=== PATIENT | male | born 1960 | race Caucasian/White ===

== ENCOUNTER 2017-06-26 20:43 | Inpatient (IN) | payer OTHER ==
[~2017-06-26] VITALS: Ht 190.5 cm; Wt 109.8 kg
[~2017-06-26 20:43] MED LIST: ASPIR 8181 MG PO; ATORVASTATIN CA20 MG PO; METOPROLOL TART50 MG PO; MULTAQ 400MG T400 MG PO; NORCO 5-325 TA1 EACH PO; PEPCID20 MG PO
[2017-06-26] MEDS ORDERED: METOPROLOL TARTRATE INJ 1 MG/ML VIAL IV ONE ×2 (21:30→23:00)
[2017-06-26 21:44] LABS: BASOPHILS % 0.4 % (0.0-1.0); EOSINOPHILS # (AUTO) 0.3 (0.0-0.4); EOSINOPHILS % 3.1 % (0.0-6.0); HEMATOCRIT 44.5 % (38.2-49.6); HEMOGLOBIN 15.8 g/dL (14.0-18.0); LYMPHOCYTES # (AUTO) 3.2 (1.0-3.2); LYMPHOCYTES % 29.5 % (18.0-39.1); MEAN CORPUSCULAR HEMOGLOBIN 30.8 pg (28-32); MEAN CORPUSCULAR HGB CONC 35.5 g/dL (31-35); MEAN CORPUSCULAR VOLUME 86.7 fL (81-99); MONOCYTES % 9.5 % (4.4-11.3); NEUTROPHILS # (AUTO) 6.1 (2.1-6.9); NEUTROPHILS % 56.8 % (38.7-80.0); PLATELET COUNT 239 x10e3/uL (140-360); RED BLOOD COUNT 5.13 x10e6/uL (4.3-5.7); RED CELL DISTRIBUTION WIDTH 12.4 % (11.7-14.4)
[2017-06-26 21:56] LABS: ALANINE AMINOTRANSFERASE 60 IU/L (0-55); ALBUMIN 4.2 g/dL (3.5-5.0); ALBUMIN/GLOBULIN RATIO 1.6 (0.8-2.0); ALKALINE PHOSPHATASE 46 IU/L (40-150); ANION GAP 11.9 mmol/L (8-16); BLOOD UREA NITROGEN 26 mg/dL (7-26); BUN/CREATININE RATIO 21 (6-25); CALCIUM 9.4 mg/dL (8.4-10.2); CARBON DIOXIDE 25 mmol/L (22-29); CHLORIDE 103 mmol/L (98-107); CREATINE KINASE 168 IU/L (30-200); CREATININE, SERUM 1.23 mg/dL (0.72-1.25); EST GLOMERULAR FILTRATION RATE > 60 ML/MIN (60-); GLUCOSE 99 mg/dL (74-118); POTASSIUM 3.9 mmol/L (3.5-5.1); SODIUM 136 mmol/L (136-145)
--- NOTE | 2017-06-26 22:20 | Diagnostic Imaging Report ---
Examination: CT BRAIN WITHOUT CONTRAST History:Left upper extremity burning and tingling. Elevated blood pressure. Comparison studies:None Technique: Axial images were obtained from the skull base to the vertex. Coronal and sagittal images reconstructed from the axial data. Intravenous contrast: None Findings: Scalp: No abnormalities. Bones: No fractures, blastic or lytic lesions. Brain sulci: Appropriate for age. Ventricles: Normal in size and configuration. No hydrocephalus. Extra-axial space: No abnormalities. Parenchyma: No abnormal densities. No masses, hemorrhage, or acute or chronic cortical based vascular insults.. Sellar/suprasellar region: No abnormalities. Craniocervical junction: Patent foramen magnum. No Chiari one malformation. Incidental findings: Atherosclerotic calcification of the supraclinoid internal carotid arteries. Impression: No intracranial abnormalities. Signed by: Dr. Elizabeth Loco M.D. on 06/26/2017 10:16 PM
--- NOTE | 2017-06-26 22:26 | Diagnostic Imaging Report ---
EXAM: CHEST 2 VIEWS, PA and lateral INDICATION: Elevated blood pressure COMPARISON: AP view of the chest shortness of breath FINDINGS: LINES/TUBES: None LUNGS: No consolidations or edema. PLEURA: No effusions or pneumothorax. HEART AND MEDIASTINUM: Normal size and contour. BONES AND SOFT TISSUES: No acute findings. IMPRESSION: No acute thoracic abnormality. Signed by: Dr. Kelly Goodson M.D. on 06/26/2017 10:22 PM
[2017-06-26] MEDS ORDERED: SODIUM CHLORIDE 0.9% 1000ML 1,000 ML IV ONE (23:00)
[2017-06-26] MEDS ORDERED: SODIUM CHLORIDE 0.9% 1000ML 1,000 ML ONE (23:06)
[2017-06-26] MEDS ORDERED: METOPROLOL TARTRATE INJ 1 MG/ML VIAL ONE (23:06)
[2017-06-27] MEDS ORDERED: ENOXAPARIN SODIUM INJ 100 MG/ML SYR SC STA (00:01)
[2017-06-27] MEDS ORDERED: ONDANSETRON HCL INJ 2 MG/ML VIAL IV PRN (00:30)
[2017-06-27] MEDS: SODIUM CHLORIDE 0.9% 1000ML 1,000 ML IV SCH ×4 (00:37→16:05)
--- OUTSIDE RECORDS SUMMARY | 2017-06-27 01:03 | XMS REPORT ---
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 Allergies, Adverse Reactions, Alerts This patient has no known allergies or adverse reactions. Medications This patient has no known medications. Results Test Description Test Time Test Comments Text Results Atomic Results Result Comments CT BRAIN WO [place] [id number] [place] [id number] Patient Name: SITA COFFEY MR #: [id number] : 1960 Age/Sex: 57/M Req #: [id number] Adm Physician: Ordered by: SITA LEIVA MD Report # : [id number] Location: ER Room/Bed: Procedure: 0320 -[id number] CT/CT BRAIN WO Exam Date: 06/26/17 Exam Time: 2144 REPORT STATUS: Signed Examination: CT BRAIN WITHOUT CONTRAST History:Left upper extremity burning and tingling. Elevated blood pressure. Comparison studies:None Technique: Axial images were obtained from the skull base to the vertex. Coronal and sagittal images reconstructed from the axial data. Intravenous contrast: None Findings: Scalp: No abnormalities. Bones: No fractures, blastic or lytic lesions. Brain sulci : Appropriate for age. Ventricles: Normal in size and configuration. No hydrocephalus. Extra-axial space: No abnormalities. Parenchyma: No abnormal densities. No masses, hemorrhage, or acute or chronic cortical based vascular insults.. Sellar/suprasellar region: No abnormalities. Craniocervical junction: Patent foramen magnum. No Chiari one malformation. Incidental findings: Atherosclerotic calcification of the supraclinoid internal carotid arteries. Impression: No intracranial abnormalities. Signed by: Dr. Elizabeth Loco M.D. on 06/26/2017 10:16 PM Dictated By: ELIZABETH TOMPKINS MD 15 Transcribed By: KAMLESH on 2215 COPY TO: SITA LEIVA MD CHEST 2 VIEWS [place] [address] Patient Name: SITA COFFEY MR #: [id number] : 1960 Age/Sex: 57/M Req #: [id number] Adm Physician: Ordered by: SITA LEIVA MD Report # : [id number] Location: ER Room/Bed: Procedure: [id number] DX/CHEST 2 VIEWS Exam Date: 06/26/17 Exam Time : 2201 REPORT STATUS: Signed EXAM: CHEST 2 VIEWS, PA and lateral INDICATION: Elevated blood pressure COMPARISON: AP view of the chest shortness of breath FINDINGS: LINES/TUBES: None LUNGS: No consolidations or edema. PLEURA: No effusions or pneumothorax. HEART AND MEDIASTINUM: Normal size and contour. BONES AND SOFT TISSUES: No acute findings. IMPRESSION: No acute thoracic abnormality. Signed by: Dr. Hailey Goodson M.D. on 06/26/2017 10:22 PM Dictated By: HAILEY GOODSON MD 21 Transcribed By: KAMLESH on 06/26/17 9448 COPY TO: SITA LEIVA MD
[2017-06-27 05:52] LABS: CREATINE KINASE MB 11.6 ng/mL (0-5.0)
[2017-06-27] MEDS ORDERED: METOPROLOL TARTRATE INJ 1 MG/ML VIAL IV SCH (06:00)
[2017-06-27] MEDS: METOPROLOL TARTRATE INJ 1 MG/ML VIAL IV SCH ×3 (06:14→21:43)
[2017-06-27] MEDS ORDERED: METOPROLOL TARTRATE INJ 1 MG/ML VIAL ONE (06:16)
[2017-06-27] MEDS ORDERED: LIPITOR20 MG (07:32)
[2017-06-27] MEDS ORDERED: DRONEDARONE 400 MG TAB PO SCH (08:00)
[2017-06-27] MEDS: METOPROLOL TARTRATE 50 MG TAB PO SCH (08:35)
[2017-06-27] MEDS: ENOXAPARIN SODIUM INJ 100 MG/ML SYR SC SCH ×2 (08:36→21:42)
[2017-06-27] MEDS ORDERED: SODIUM CHLORIDE FLUSH 10 ML SYR INJ PRN (10:45)
[2017-06-27] MEDS ORDERED: ALPRAZOLAM 0.5 MG TAB PO PRN (10:45)
--- NOTE | 2017-06-27 11:32 | History and Physical ---
Mr. Saab is a pleasant, 57-year-old man known to me since 2015, who presented to the emergency room today with a complaint of palpitations. HISTORY OF PRESENT ILLNESS: The patient reports he had been feeling well in the last 2 days, but that on the evening of the , while going about his routine activities, he developed rapid palpitations. He felt he also had some tingling in his left arm. PAST MEDICAL HISTORY: Significant for previous episodes of atrial fibrillation in December 2015. He has taken Multaq since that time. He stopped taking Xarelto about a year ago. He had cardiac cath in 2010 that showed moderate two-vessel coronary disease. He did have a stress test in March 2017 that was negative. MEDICATIONS: Current medications at home include: 1. Multaq 400 mg twice daily. 2. Metoprolol 25 mg daily. 3. Atorvastatin 10 mg daily. 4. He reports he takes a nonsteroidal anti-inflammatory sometimes. FAMILY HISTORY: Brothers have coronary disease. PERSONAL AND SOCIAL HISTORY: He does not smoke. PHYSICAL EXAMINATION GENERAL: Exam at this time shows a pleasant, alert man, about 6 feet 2 inches tall, weighing 232 pounds. VITAL SIGNS: Blood pressure is 120/70. Pulse is 110 and irregular. HEENT: Unremarkable. NECK: No jugular venous distention. No bruits. THORAX: Heart sounds S1 and S2 are equal but irregular and irregular. There is no distinct murmur. ABDOMEN: Protuberant. EXTREMITIES: No cyanosis, clubbing or edema. REVIEW OF SYSTEMS: Gastrointestinal: He reports he has had some right lower quadrant discomfort and reports he has actually seen Dr. Bernal in the last couple of weeks and had a CAT scan that was unremarkable. LABS: Troponins are normal times 2. BUN 26, creatinine 1.23, glucose 99. White count 10.6, hemoglobin 15.8. ASSESSMENT 1. Recurrent atrial fibrillation. 2. Hyperlipidemia. 3. Known coronary disease. PLAN: Will use Lovenox and continue his metoprolol and Multaq. Will plan cardiac catheterization for tomorrow and then consider whether he may need ablation or other treatment for his atrial fibrillation. Job#: [id number]
[2017-06-27 14:04] LABS: CREATINE KINASE 100 IU/L (30-200)
[2017-06-27 16:29] VITALS: BP 123/99
[2017-06-27 16:58] VITALS: BP 117/74
[2017-06-27 20:00] VITALS: BP 133/93
[2017-06-27] MEDS: AMIODARONE HCL 200 MG TAB PO SCH (21:43)
[2017-06-27 22:19] LABS: CREATINE KINASE MB 8.8 ng/mL (0-5.0)
[2017-06-28] VITALS: BP_SYST 118; BP_SYST 133; BP_DIAS 85; BP_DIAS 93
[2017-06-28] MEDS: SODIUM CHLORIDE 0.9% 1000ML 1,000 ML IV SCH ×3 (02:35→18:10)
[2017-06-28 04:00] VITALS: BP 152/58
[2017-06-28] MEDS: AMIODARONE HCL 200 MG TAB PO SCH ×3 (05:46→21:30)
[2017-06-28] MEDS: METOPROLOL TARTRATE INJ 1 MG/ML VIAL IV SCH ×3 (06:00→21:30)
[2017-06-28 07:16] LABS: BASOPHILS % 0.5 % (0.0-1.0); EOSINOPHILS # (AUTO) 0.3 (0.0-0.4); EOSINOPHILS % 3.3 % (0.0-6.0); HEMOGLOBIN 14.3 g/dL (14.0-18.0); LYMPHOCYTES # (AUTO) 2.1 (1.0-3.2); LYMPHOCYTES % 23.9 % (18.0-39.1); MEAN CORPUSCULAR HEMOGLOBIN 30.5 pg (28-32); MEAN CORPUSCULAR VOLUME 89.6 fL (81-99); MONOCYTES % 11.2 % (4.4-11.3); NEUTROPHILS # (AUTO) 5.3 (2.1-6.9); NEUTROPHILS % 60.8 % (38.7-80.0); PLATELET COUNT 204 x10e3/uL (140-360); RED BLOOD COUNT 4.69 x10e6/uL (4.3-5.7); RED CELL DISTRIBUTION WIDTH 12.8 % (11.7-14.4)
[2017-06-28 07:30] LABS: INR 1.01; PROTHROMBIN TIME 12.5 seconds (11.9-14.5)
[2017-06-28 07:31] LABS: PARTIAL THROMBOPLASTIN TIME 30.8 seconds (23.8-35.5)
[2017-06-28 07:48] LABS: ALANINE AMINOTRANSFERASE 46 IU/L (0-55); ALBUMIN 3.8 g/dL (3.5-5.0); ALBUMIN/GLOBULIN RATIO 1.6 (0.8-2.0); ALKALINE PHOSPHATASE 40 IU/L (40-150); ANION GAP 12.5 mmol/L (8-16); BLOOD UREA NITROGEN 19 mg/dL (7-26); BUN/CREATININE RATIO 21 (6-25); CARBON DIOXIDE 25 mmol/L (22-29); CHLORIDE 109 mmol/L (98-107); CREATININE, SERUM 0.91 mg/dL (0.72-1.25); EST GLOMERULAR FILTRATION RATE > 60 ML/MIN (60-); GLUCOSE 104 mg/dL (74-118); POTASSIUM 4.5 mmol/L (3.5-5.1); SODIUM 142 mmol/L (136-145)
[2017-06-28 08:05] LABS: CHOL/HDL RATIO 5.2 (3.9-4.7)
[2017-06-28 08:27] LABS: THYROID STIMULATING HORMONE 1.814 uIU/mL (0.350-4.940)
[2017-06-28] MEDS: METOPROLOL TARTRATE 50 MG TAB PO SCH (08:55)
[2017-06-28] MEDS ORDERED: ATORVASTATIN 10 MG TAB PO SCH (09:00)
[2017-06-28] MEDS ORDERED: LIDOCAINE HCL 2% LOCAL 20 ML VIAL ONE ×2 (09:40→10:17)
[2017-06-28] MEDS ORDERED: IOPAMIDOL 370 MG/ML 200 ML INFUS..BTL INJ ONE (09:40)
[2017-06-28] MEDS ORDERED: HEPARIN SOD/SOD CHLORIDE 2,000 ML ONE (09:40)
[2017-06-28] MEDS ORDERED: FENTANYL CITRATE/PF 100MCG/2 ML INJ ONE (09:55)
[2017-06-28] MEDS ORDERED: SODIUM CHLORIDE 0.9% 1000ML 1,000 ML ONE (09:55)
[2017-06-28] MEDS ORDERED: MIDAZOLAM HCL 2 MG/2 ML VIAL ONE (09:55)
[2017-06-28 10:04] VITALS: BP 146/71
[2017-06-28] MEDS ORDERED: METOPROLOL TARTRATE INJ 1 MG/ML VIAL ONE (10:05)
[2017-06-28] MEDS ORDERED: HYDROCODONE/APAP 5MG-325MG TAB PO PRN (10:45)
[2017-06-28] MEDS ORDERED: ACETAMINOPHEN 325 MG TAB PO PRN (10:45)
[2017-06-28 13:26] VITALS: BP 129/87
[2017-06-28 17:04] VITALS: BP 114/74
[2017-06-28] MEDS: RIVAROXABAN 20 MG TABLET PO SCH (17:33)
[2017-06-28 20:00] VITALS: BP 124/85
[2017-06-28] MEDS ORDERED: ZOLPIDEM TARTRATE 5 MG TAB PO PRN (21:00)
[2017-06-29] VITALS (7 sets, daily range): BP systolic 117–145; BP diastolic 77–97
[2017-06-29] MEDS: SODIUM CHLORIDE 0.9% 1000ML 1,000 ML IV SCH ×2 (02:35→10:35)
[2017-06-29] MEDS: AMIODARONE HCL 200 MG TAB PO SCH ×2 (06:22→14:16)
[2017-06-29] MEDS: METOPROLOL TARTRATE INJ 1 MG/ML VIAL IV SCH ×2 (06:22→14:16)
[2017-06-29] MEDS: METOPROLOL TARTRATE 50 MG TAB PO SCH (09:13)
[2017-06-29] MEDS ORDERED: BENZOCAINE 20% SPR 60 ML CAN ONE (11:08)
[2017-06-29] MEDS ORDERED: PROPOFOL IV EMULSION 10 MG/ML 20 ML VIAL ONE (14:32)
[2017-06-29] MEDS ORDERED: LIDOCAINE HCL 2% LOCAL INJ 5 ML SDV VIAL INJ ONE (14:32)
[2017-06-29] MEDS ORDERED: FENTANYL CITRATE/PF 100MCG/2 ML INJ ONE (15:48)
[2017-06-29] MEDS ORDERED: XARELTO10 MG PO (16:52)
[2017-06-29] MEDS ORDERED: AMIODARONE HCL200 MG PO (16:52)
[2017-06-29] MEDS: RIVAROXABAN 20 MG TABLET PO SCH (16:53)
--- NOTE | 2017-06-29 17:24 | Discharge Summary ---
HISTORY OF PRESENT ILLNESS: Mr. Saab is a 57-year-old man well known to me for several years with problems with intermittent atrial fibrillation. HOSPITAL COURSE: Patient presented to the emergency room in rapid atrial fibrillation and was given IV metoprolol. His Multaq was stopped and he was begun loaded with on amiodarone orally. On the he was taken to cardiac research laboratory specialist where a left heart catheterization showed insignificant coronary disease and poor left ventricular function. EF 25% to 30%. On the morning of the , he was taken to the endoscopy suite where transesophageal echocardiogram was performed, which showed mild mitral regurgitation. No evidence of atrial thrombus and he was cardioverted with 120 joules successfully. He will take his last loading dose of amiodarone 400 mg at home this evening and begin daily 400 mg each morning. He will add Xarelto 20 mg daily and discontinue his Multaq. He will continue his home metoprolol and atorvastatin. He will follow up Dr. Khan next week to consider ablation of atrial fibrillation. DISCHARGE DIAGNOSES: 1. Recurrent atrial fibrillation. 2. Hypertension. 3. Reduced left ventricular function. 4. Successful cardioversion to sinus rhythm. DENISE ARIZA MD Job#: [id number]
[2017-06-29] MEDS ORDERED: ATORVASTATIN 10 MG TAB PO SCH (21:00)
--- NOTE | 2017-07-02 14:55 | Operative Report ---
DATE OF PROCEDURE: June 27, 2017 PROCEDURE: Left heart catheterization. The patient was brought to the catheterization laboratory technician in a fasting and partially sedated state with recent onset of atrial fibrillation. The right groin was prepped, scrubbed and 2% Xylocaine. The patient was given a total of 2 mg of Versed. A 4-Cambodian sheath was placed in the right common femoral artery and left heart catheterization performed with a 4-Cambodian pigtail and a 4-Cambodian right Rocio, and a 5-Cambodian left Rocio catheters. Inspection of the film shows that the left ventricular function is abnormal with estimated ejection fraction of 25%. No distinct regional wall motion abnormalities. The right coronary artery appears to be large and unremarkable without any significant plaquing. The left main again without any significant plaquing. The proximal LAD has about a 15% stenosis more distally and unremarkable. The small ramus is unremarkable. The first obtuse marginal has about a 15% stenosis in its proximal portion, but unremarkable more distally. The distal circumflex is very small. The catheters were removed, and pressure held. He was returned to his room in stable condition. FINAL IMPRESSION 1. Abnormal left ventricular function with global hypokinesis. Estimated ejection fraction 25%. 2. Minor coronary disease with 15% stenoses of the left anterior descending and obtuse marginal vessels. 3. No mitral regurgitation. Job#: [id number] USHA
--- NOTE | 2017-07-03 11:59 | Consultation ---
DATE OF CONSULTATION: REFERRING PHYSICIAN: Dr. Curtis REASON FOR CONSULT: Atrial fibrillation, consider ablation. HISTORY OF PRESENT ILLNESS: This is a 57-year-old gentleman with a history of atrial fibrillation. He has been paroxysmal. He has had several episodes over the last 2 years. He feels palpitations. The initial episode he underwent cardioversion and was started on Multaq. Despite taking Multaq, he sometimes feels palpitations. His heart is racing. He has been to the ER a couple of times with same symptoms and found to be in atrial fibrillation despite taking Multaq. He presented this time because the episode did not subside and has lasted for a few hours, having some dizziness and chest pain, found to be in atrial fibrillation with rapid ventricular response. Currently undergoing workup by Dr. Curtis. He feels a little better now after rate is better controlled, initially was at 140 beats per minute, now it is at about 100 beats per minute. No history of syncope. REVIEW OF SYSTEMS CONSTITUTIONAL: Negative. CARDIOVASCULAR: As per HPI. RESPIRATORY: Negative. GASTROINTESTINAL: Negative. GENITOURINARY: Negative. MUSCULOSKELETAL: Negative. EYES: Negative. ENT: Negative. ALLERGY AND IMMUNOLOGY: Negative. PSYCHIATRY: Negative. PAST MEDICAL HISTORY: Atrial fibrillation. SURGICAL HISTORY: Negative. SOCIAL HISTORY: No smoking, alcohol, or illicit drugs. FAMILY HISTORY: Nor premature coronary artery disease. PHYSICAL EXAMINATION VITAL SIGNS: Blood pressure 120/60, pulse 100, respirations 20, and O2 sats 98%. GENERAL: No acute distress. HEENT: Moist mucous membranes. CARDIOVASCULAR: Irregular. RESPIRATORY: Clear. ABDOMEN: Soft and nontender. MUSCULOSKELETAL: 2+ distal pulses. NEUROLOGIC: No focal deficit. SKIN: No lesions. EKG: Atrial fibrillation, rapid ventricular response. IMPRESSION: Atrial fibrillation, paroxysmal, highly symptomatic, refractory to medical therapy with Multaq. RECOMMENDATIONS: I had a long discussion with the patient. He has a strong indication for ablation. Explained the different options including continuing antiarrhythmic therapy. Patient is interested in the procedure. The ablation was discussed in detail with benefits and risks. Patient voices understanding and wishes to proceed. We will go ahead and schedule an ablation of atrial fibrillation at [facility]. We will need a cardiac CT at [facility]. No need for ZHENG for the ablation. I agree with continuing anticoagulation with Eliquis or Xarelto. Dr. Curtis, recommend to start amiodarone 400 mg once a day. Discussed with Dr. Curtis. He is to arrange for ZHENG cardioversion before discharge. Also, patient is undergoing heart catheterization during this admission. Patient will be discharged from this hospital and we will schedule the ablation as an outpatient. Thank you for letting us participate in Mr. Saab's healthcare. Job#: [id number] CF
--- NOTE | 2017-07-12 22:19 | Consultation ---
DATE OF CONSULTATION: June 27, 2017 ADDENDUM TO CONSULTATION The date of consultation is June 27, 2017. Job#: [id number]
== END 2017-06-29 17:15 | disposition home or self-care (01) | DRG 287 ==
LOC: ER 20:43 → ERHOLD 06-27 00:59 → MED/SURG 06-27 15:30
PROVIDERS: ADMIT Internal Medicine Cardiovascular Disease; ATTEND Internal Medicine Cardiovascular Disease
PROC: 4A023N7 Measurement of Cardiac Sampling and Pressure, Left Heart, Percutaneous Approach (ICD-10-PCS; principal; 2017-06-27)
PROC: B2151ZZ Fluoroscopy of Left Heart using Low Osmolar Contrast (ICD-10-PCS; 2017-06-27)
PROC: B2101ZZ Fluoroscopy of Single Coronary Artery using Low Osmolar Contrast (ICD-10-PCS; 2017-06-27)
PROC: 5A2204Z Restoration of Cardiac Rhythm, Single (ICD-10-PCS; 2017-06-29)
DX: I48.0 Paroxysmal atrial fibrillation (principal); I10 Essential (primary) hypertension; E78.5 Hyperlipidemia, unspecified; I25.10 Atherosclerotic heart disease of native coronary artery without angina pectoris
CPT/HCPCS: 36140; 36415; 70450; 71046; 77002; 80053; 80061; 82550; 82553; 84443; 84484; 85025; 85610; 85730; 93005; 93306; 93312; 93320; 93325; 93452; 93458; 96360; 96372; 96374; 96376; 99284; C1766; J1650; J2001; J2250; J7030; Q9967

== ENCOUNTER 2017-10-15 20:48 | Observation (INO) | payer OTHER ==
[~2017-10-15] VITALS: Ht 190.5 cm; Wt 111.2 kg
[~2017-10-15 20:48] MED LIST changes: +AMIODARONE HCL200 MG PO; +LIPITOR20 MG; +XARELTO10 MG PO
[2017-10-15] MEDS ORDERED: CLONIDINE HCL 0.2 MG TAB PO ONE (22:00)
[2017-10-15 22:17] LABS: BASOPHILS % 0.4 % (0.0-1.0); EOSINOPHILS # (AUTO) 0.2 (0.0-0.4); EOSINOPHILS % 2.9 % (0.0-6.0); HEMATOCRIT 41.3 % (38.2-49.6); HEMOGLOBIN 14.7 g/dL (14.0-18.0); LYMPHOCYTES # (AUTO) 1.5 (1.0-3.2); LYMPHOCYTES % 19.4 % (18.0-39.1); MEAN CORPUSCULAR HEMOGLOBIN 32.2 pg (28-32); MEAN CORPUSCULAR HGB CONC 35.6 g/dL (31-35); MEAN CORPUSCULAR VOLUME 90.6 fL (81-99); MONOCYTES # (AUTO) 0.7 (0.2-0.8); MONOCYTES % 9.4 % (4.4-11.3); NEUTROPHILS # (AUTO) 5.3 (2.1-6.9); NEUTROPHILS % 67.3 % (38.7-80.0); PLATELET COUNT 208 x10e3/uL (140-360); RED BLOOD COUNT 4.56 x10e6/uL (4.3-5.7); RED CELL DISTRIBUTION WIDTH 12.4 % (11.7-14.4)
[2017-10-15 22:20] LABS: INR 1.8; PROTHROMBIN TIME 19.6 seconds (11.9-14.5)
[2017-10-15 22:21] LABS: PARTIAL THROMBOPLASTIN TIME 39.4 seconds (23.8-35.5)
[2017-10-15 22:31] LABS: ALANINE AMINOTRANSFERASE 49 IU/L (0-55); ALBUMIN 4.4 g/dL (3.5-5.0); ALBUMIN/GLOBULIN RATIO 1.5 (0.8-2.0); ALKALINE PHOSPHATASE 60 IU/L (40-150); ANION GAP 15.9 mmol/L (8-16); BLOOD UREA NITROGEN 21 mg/dL (7-26); BUN/CREATININE RATIO 24 (6-25); CALCIUM 9.9 mg/dL (8.4-10.2); CARBON DIOXIDE 24 mmol/L (22-29); CHLORIDE 104 mmol/L (98-107); CREATINE KINASE 121 IU/L (30-200); CREATININE, SERUM 0.88 mg/dL (0.72-1.25); EST GLOMERULAR FILTRATION RATE > 60 ML/MIN (60-); GLUCOSE 104 mg/dL (74-118); POTASSIUM 3.9 mmol/L (3.5-5.1); SODIUM 140 mmol/L (136-145)
--- NOTE | 2017-10-15 22:44 | Diagnostic Imaging Report ---
CHEST SINGLE (PORTABLE), 10/15/2017 10:07 PM Technique: CHEST SINGLE (PORTABLE) Comparison: 06/26/2017 Clinical history: Chest pain Findings: Cardiomediastinal silhouette is within normal limits for technique. There is no consolidation or edema. No pleural effusion or pneumothorax. Impression: 1. Lines/Tubes: None 2. No acute abnormality. Signed by: Dr Camryn Edmond MD on 10/15/2017 10:40 PM
[2017-10-16] MEDS ORDERED: ACETAMINOPHEN 325 MG TAB PO ONE (00:30)
[2017-10-16] MEDS ORDERED: MORPHINE SULFATE 2 MG/ML SYR IV PRN (00:45)
[2017-10-16] MEDS ORDERED: NITROGLYCERIN 0.4 MG SUBL SL PRN (00:45)
[2017-10-16] MEDS: FAMOTIDINE 20 MG/2 ML VIAL IV SCH ×2 (01:04→08:59)
[2017-10-16 01:45] VITALS: BP 127/82
[2017-10-16 02:18] VITALS: BP 127/82
[2017-10-16 02:51] VITALS: BP 127/82
[2017-10-16 04:00] VITALS: BP 131/81
[2017-10-16 06:06] LABS: CREATINE KINASE MB 5.8 ng/mL (0-5.0)
[2017-10-16 08:10] VITALS: BP 134/75
[2017-10-16 08:24] VITALS: BP 134/75
[2017-10-16] MEDS ORDERED: ATORVASTATIN 20 MG TAB PO SCH (09:00)
[2017-10-16] MEDS ORDERED: AMIODARONE HCL 200 MG TAB PO SCH (09:00)
[2017-10-16] MEDS ORDERED: ASPIRIN 81 MG ENTERIC COATED PO SCH (09:00)
--- NOTE | 2017-10-16 12:53 | History and Physical ---
Mr. Saab is a 57-year-old man, known to me for several years, who presents to the emergency room with a complaint of "panic sort of attack." HISTORY OF PRESENT ILLNESS: Patient reports he has been working all day, drank a large cup of coffee after exercise, checked his blood pressure and it was 199/100. He decided to come to the emergency room. PAST MEDICAL HISTORY: Significant for episodes of atrial fibrillation in December 2015 and repeat atrial fib in June 2017. He had cardiac catheterization at that time that showed minimal coronary artery disease and has had ablation of atrial fibrillation since that time. CURRENT MEDICATIONS AT HOME: Include amiodarone 100 mg daily, atorvastatin 10 mg daily, and Xarelto 20 mg daily. He recently stopped metoprolol for feelings of lethargy and bradycardia. PERSONAL/SOCIAL HISTORY: He no longer smokes. FAMILY HISTORY: Brothers have coronary artery disease. PHYSICAL EXAMINATION GENERAL: At this time shows a pleasant white man who is comfortable. VITAL SIGNS: Blood pressure 134/75. HEAD, EYES, EARS, NOSE, AND THROAT: Unremarkable. NECK: No jugular venous distention. THORAX: Heart sounds S1, S2 are equal. No murmurs. LUNGS: Clear. ABDOMEN: Protuberant. EXTREMITIES: No cyanosis, clubbing, or edema. DIAGNOSTIC DATA: EKG shows sinus rhythm. Troponins are normal. ASSESSMENT 1. Probable panic attack. 2. Recent ablation of atrial fibrillation. 3. Episode of hypertension. PLAN: Will monitor on telemetry and recheck blood pressure. Further management based on clinical course. Job#: [id number] LPA
--- NOTE | 2017-10-16 16:28 | Discharge Summary ---
HISTORY OF PRESENT ILLNESS: Mr. Saab is a pleasant 57-year-old man who presented to the emergency room with complaint of panic attack and finding of high blood pressure. HOSPITAL COURSE: Patient was monitored on the floor overnight. Blood pressure today is 134/75. The fact that he had recently stopped metoprolol was discussed, but he felt that he was lethargic and bradycardic with that and as his blood pressure is normal today, EKG unchanged and troponins were normal, he is discharged home to monitor his home blood pressure and follow up in my office in one week. DISCHARGE DIAGNOSES: 1. Anxiety. 2. Episode of hypertension. 3. Recent ablation of atrial fibrillation. DENISE ARIZA MD Job#: [id number] GH
[2017-10-16] MEDS ORDERED: RIVAROXABAN 10 MG TABLET PO SCH (17:00)
[2017-10-16] MEDS ORDERED: RIVAROXABAN 20 MG TABLET PO SCH (17:00)
== END 2017-10-16 11:26 | disposition home or self-care (01) ==
LOC: ER 20:48 → ERHOLD 10-16 00:37 → IMCU 10-16 01:15
PROVIDERS: ADMIT Internal Medicine Cardiovascular Disease; ATTEND Internal Medicine Cardiovascular Disease
DX: F41.9 Anxiety disorder, unspecified (principal); R07.9 Chest pain, unspecified; I10 Essential (primary) hypertension; Z87.891 Personal history of nicotine dependence; I25.2 Old myocardial infarction; I48.91 Unspecified atrial fibrillation; E78.00 Pure hypercholesterolemia, unspecified
CPT/HCPCS: 36415 ×2; 71045; 80053; 82550 ×2; 82553 ×2; 83880; 84484 ×2; 85025; 85610; 85730; 93005; 99284; G0378

== ENCOUNTER 2018-12-01 10:31 | Emergency (ER) | payer OTHER ==
[~2018-12-01] VITALS: Ht 190.5 cm; Wt 111.1 kg
[2018-12-01] MEDS: KETOROLAC TROMETHAMINE 60 MG/2 ML VIAL IM ONE (10:49)
[2018-12-01] MEDS: DIAZEPAM 5 MG TAB PO ONE (10:50)
[2018-12-01] MEDS: HYDROCODONE/APAP 10MG-325MG TAB PO ONE (10:50)
--- NOTE | 2018-12-01 11:05 | NUR ---
BLOOD PRESSURE: LEFT ARM - 149/105 RIGHT ARM - 143/97
--- NOTE | 2018-12-01 11:09 | NUR ---
REC'D REPORT FROM JAYDEN JAIN FOR CONTINUITY OF CARE.
--- NOTE | 2018-12-01 11:35 | NUR ---
YARY MEJIA,CARROT HARVESTER IN TO SPEAK WITH PT. Addendum: 12/01/18 at 1136 by PAMELA PT RATING PAIN 07/17. PT STATED, " I CAN FEEL IT STARTING TO KICK IN."
[2018-12-01] MEDS: DEXAMETHASONE SOD PHOS 10 MG/1 ML VIAL IM NR (12:54)
[2018-12-01] MEDS: DIAZEPAM 5 MG TAB PO NR (13:03)
[2018-12-01] MEDS: HYDROMORPHONE 1MG/1ML INJ IM NR (13:03)
--- NOTE | 2018-12-01 14:10 | Diagnostic Imaging Report ---
History: Neck pain Comparison studies: None Technique: Axial images were obtained through the cervical region. Coronal and sagittal images reconstructed from the axial data. Dose modulation, iterative reconstruction, and/or weight based adjustment of the mA/kV was utilized to reduce the radiation dose to as low as reasonably achievable. Intravenous contrast: None Findings: Atlantoaxial articulation: Mildly degenerated Alignment: Focal reversal of the usual lordosis centered at C5-C6. No scoliosis. Cervicomedullary junction: No abnormalities. Patent foramen magnum. Soft tissues: No gross abnormalities. Vertebrae: No fractures, neoplasm or infection. Degenerative changes: C2-C3: Minimally degenerated disc. Mild left foraminal stenosis due to facet and uncoarthrosis. Mild spinal canal stenosis due to a disc osteophyte complex. Patent right foramen in spite of right facet arthrosis. C3-4: Minimally degenerated disc. Moderate left foraminal stenosis due to facet arthrosis. Patent spinal canal and right foramen in spite of a right facet arthrosis. C4-5: Mildly degenerated disc. Mild right foraminal stenosis due to facet and uncoarthrosis. Mild spinal canal stenosis due to a disc osteophyte complex. Patent left foramen in spite of facet arthrosis. C5-6: Moderately degenerated disc. Moderate right foraminal stenosis due to facet and uncoarthrosis. Patent left foramen Moderate spinal canal stenosis due to a disc osteophyte complex. C6-7: Moderately degenerated disc. Moderate left foraminal stenosis due to facet and uncoarthrosis. Patent left foramen Moderate spinal canal stenosis due to a disc osteophyte complex. C7-T1: Mildly degenerated disc. Bilateral facet arthrosis. Patent spinal canal and foramina. IMPRESSION: No acute abnormalities. Degenerative changes include: 1. Degenerated discs from C4 through T1, worse at C5-6 and C6-7. 2. Mild facet arthrosis at multiple levels. 3. Moderate spinal canal stenosis at C5-6 and C6-7 due to disc osteophyte complexes. 4. Superimposed foraminal stenosis from C2 through C7 is worse on the left at C3-4, right at C5-6 and left at C6-7. Signed by: Dr. Kale Bhagat M.D. on 12/01/2018 2:06 PM
== END 2018-12-01 15:12 | disposition home or self-care (01) ==
LOC: ER 10:31
DX: S16.1XXA Strain of muscle, fascia and tendon at neck level, initial encounter (principal); M47.892 Other spondylosis, cervical region; M48.02 Spinal stenosis, cervical region; M50.322 Other cervical disc degeneration at C5-C6 level; X58.XXXA Exposure to other specified factors, initial encounter
CPT/HCPCS: 72125; 99284; J1100; J1170; J1885

== ENCOUNTER 2019-01-21 07:13 | Inpatient (IN) | payer OTHER ==
[~2019-01-21] VITALS: Ht 190.5 cm; Wt 105.7 kg
[2019-01-21] MEDS ORDERED: SODIUM CHLORIDE 0.9% 1000ML 1,000 ML IV ONE (07:30)
[2019-01-21] MEDS ORDERED: LOSARTAN POTASS50 MG PO (07:43)
[2019-01-21] MEDS ORDERED: METOPROLOL SUCC50 MG PO (07:43)
[2019-01-21] MEDS ORDERED: METOPROLOL TARTRATE INJ 1 MG/ML VIAL IV ONE (08:00)
[2019-01-21 08:09] LABS: BASOPHILS % 0.4 % (0.0-1.0); EOSINOPHILS # (AUTO) 0.2 (0.0-0.4); HEMATOCRIT 43.4 % (38.2-49.6); HEMOGLOBIN 15.1 g/dL (14.0-18.0); LYMPHOCYTES # (AUTO) 1.8 (1.0-3.2); LYMPHOCYTES % 19.9 % (18.0-39.1); MEAN CORPUSCULAR HEMOGLOBIN 32.1 pg (28-32); MEAN CORPUSCULAR HGB CONC 34.8 g/dL (31-35); MEAN CORPUSCULAR VOLUME 92.3 fL (81-99); MONOCYTES # (AUTO) 0.9 (0.2-0.8); MONOCYTES % 10.3 % (4.4-11.3); NEUTROPHILS # (AUTO) 6.1 (2.1-6.9); NEUTROPHILS % 66.8 % (38.7-80.0); PLATELET COUNT 281 x10e3/uL (140-360); RED CELL DISTRIBUTION WIDTH 12.5 % (11.7-14.4)
[2019-01-21] MEDS ORDERED: AMIODARONE HCL 360MG 200 ML IV SCH ×2 (08:15→12:00)
[2019-01-21] MEDS ORDERED: AMIODARONE HCL 150MG 100 ML ONE (08:18)
[2019-01-21 08:19] LABS: INR 1.16; PROTHROMBIN TIME 15.4 seconds (11.9-14.5)
[2019-01-21 08:20] LABS: PARTIAL THROMBOPLASTIN TIME 38.8 seconds (23.8-35.5)
[2019-01-21 08:27] LABS: ALANINE AMINOTRANSFERASE 33 IU/L (0-55); ALBUMIN 4.2 g/dL (3.5-5.0); ALBUMIN/GLOBULIN RATIO 1.4 (0.8-2.0); ALKALINE PHOSPHATASE 60 IU/L (40-150); BLOOD UREA NITROGEN 16 mg/dL (7-26); BUN/CREATININE RATIO 16 (6-25); CALCIUM 10.2 mg/dL (8.4-10.2); CARBON DIOXIDE 24 mmol/L (22-29); CHLORIDE 105 mmol/L (98-107); CREATINE KINASE 87 IU/L (30-200); EST GLOMERULAR FILTRATION RATE > 60 ML/MIN (60-); GLUCOSE 138 mg/dL (74-118); SODIUM 139 mmol/L (136-145)
[2019-01-21] MEDS ORDERED: AMIODARONE HCL 100 ML IV ONE (08:45)
--- NOTE | 2019-01-21 08:53 | Diagnostic Imaging Report ---
EXAMINATION: CHEST SINGLE (PORTABLE) INDICATION: Atrial fibrillation, shortness of breath COMPARISON: None FINDINGS: LINES/TUBES:EKG leads overlie the chest. LUNGS:The lungs are moderately inflated. No focal consolidation or pulmonary edema. Mild bibasilar subsegmental atelectasis. PLEURA:No pleural effusion or pneumothorax. MEDIASTINUM:The cardiomediastinal silhouette appears normal in size and shape. BONES/SOFT TISSUES:No acute osseous injury. ABDOMEN:No free air under the diaphragm. IMPRESSION: Mild bibasilar subsegmental atelectasis. No focal pneumonia or pulmonary edema. Signed by: Michelle Santamaria MD on 01/21/2019 8:50 AM
[2019-01-21] MEDS ORDERED: AMIODARONE 900MG 500 ML IV ONE (08:55)
[2019-01-21] MEDS ORDERED: DIGOXIN INJ 0.25 MG/ML 2 ML AMP IV ONE ×2 (09:00→10:00)
[2019-01-21] MEDS ORDERED: ONDANSETRON HCL INJ 2MG/ML 2ML 2 MG/ML VIAL IV PRN (09:30)
[2019-01-21] MEDS ORDERED: MORPHINE SULFATE 2 MG/ML SYR 1ML IV PRN (09:30)
[2019-01-21] MEDS ORDERED: ASPIRIN 81 MG CHEW TAB PO ONE (12:00)
[2019-01-21 12:36] LABS: CREATINE KINASE MB 3.4 ng/mL (0-5.0)
[2019-01-21 12:58] LABS: CHOL/HDL RATIO 4.3 (3.9-4.7)
[2019-01-21 13:25] LABS: FREE THYROXINE INDEX 2.2645 (1.4-3.8); THYROID STIMULATING HORMONE 0.508 uIU/mL (0.350-4.940)
[2019-01-21 15:28] VITALS: BP 108/96
[2019-01-21 15:29] VITALS: BP 108/96
[2019-01-21] MEDS: METOPROLOL TARTRATE 25 MG TAB PO SCH (16:19)
[2019-01-21] MEDS: RIVAROXABAN 20 MG TABLET PO SCH (16:21)
[2019-01-21] MEDS: SODIUM CHLORIDE 0.9% 1000ML 1,000 ML IV SCH (16:22)
[2019-01-21 19:42] VITALS: BP 115/70
--- NOTE | 2019-01-21 19:43 | History and Physical ---
CHIEF COMPLAINT: Mr. Saab is a pleasant 59-year-old man, known to me for several years, who presents to the emergency room today with a complaint of breathlessness and palpitations. HISTORY OF PRESENT ILLNESS: The patient reports he has been exercising, dieting, losing weight, working all the time, but felt breathless when he awoke this morning. The patient reports that his birthday was 2 days ago and that he went to an [employer] baseball game, had some beers and usually exercises on a treadmill for as much as 40 minutes a day. Denies any chest pain or previous palpitations. PAST MEDICAL HISTORY: Significant for previous transesophageal echocardiogram and cardioversion on December 22, 2015, cardiac catheterization at that time showed moderate 2-vessel coronary artery disease, 50% mid LAD, 50% OM2, 20% ostial left main, EF 60% in 2010, but repeat cardiac cath in June 2017 suggested an EF about 25% and 15% stenosis in the LAD and OM. He had ablation of atrial fibrillation in July of 2017. He has had remote back surgery and bilateral carpal tunnel repairs. MEDICATIONS: Recent home medications have been atorvastatin 20 mg daily, Xarelto 20 mg daily, metoprolol tartrate 25 mg twice a day. PERSONAL/SOCIAL HISTORY: He no longer smokes, but drinks alcohol as much as 4 days a week and drinks as much as 4 cups of coffee each morning. PHYSICAL EXAMINATION: GENERAL: At this time shows a pleasant, alert man, who is comfortable. VITAL SIGNS: Blood pressure is 120/60, pulse is 130 and irregularly irregular. HEAD, EYES, EARS, NOSE, AND THROAT: Unremarkable. NECK: No jugular venous distention. No bruits. THORAX: Heart sounds S1 and S2 are equal and irregularly irregular. No distinct murmur. LUNGS: Clear. ABDOMEN: Protuberant. EXTREMITIES: No cyanosis, clubbing, or edema. DIAGNOSTIC DATA: EKG shows atrial fibrillation. INITIAL LABORATORY STUDIES: Remarkable only for a glucose of 138. ASSESSMENT: 1. Recurrent atrial fibrillation. 2. Known cardiomyopathy. 3. Mild coronary artery disease in the past. PLAN: We will continue his Xarelto and lower his amiodarone today. We will consult Dr. Khan for assistance and management of atrial fibrillation and consideration of repeat ablation. MD ANISH Hogan/ANITA /[id number] cc: Erick Keating MD
[2019-01-21 21:00] VITALS: BP 115/70
[2019-01-21 21:43] LABS: CREATINE KINASE MB 2.8 ng/mL (0-5.0)
[2019-01-22] VITALS (9 sets, daily range): BP systolic 100–118; BP diastolic 64–96
[2019-01-22] MEDS: SODIUM CHLORIDE 0.9% 1000ML 1,000 ML IV SCH ×4 (01:51→23:34)
[2019-01-22 05:15] LABS: BASOPHILS % 0.4 % (0.0-1.0); EOSINOPHILS # (AUTO) 0.2 (0.0-0.4); EOSINOPHILS % 2.5 % (0.0-6.0); HEMATOCRIT 42.1 % (38.2-49.6); HEMOGLOBIN 14.3 g/dL (14.0-18.0); LYMPHOCYTES # (AUTO) 1.6 (1.0-3.2); LYMPHOCYTES % 22.2 % (18.0-39.1); MEAN CORPUSCULAR HEMOGLOBIN 31.4 pg (28-32); MEAN CORPUSCULAR VOLUME 92.3 fL (81-99); MONOCYTES # (AUTO) 0.8 (0.2-0.8); MONOCYTES % 11.3 % (4.4-11.3); NEUTROPHILS # (AUTO) 4.5 (2.1-6.9); NEUTROPHILS % 63.3 % (38.7-80.0); PLATELET COUNT 230 x10e3/uL (140-360); RED BLOOD COUNT 4.56 x10e6/uL (4.3-5.7); RED CELL DISTRIBUTION WIDTH 12.6 % (11.7-14.4)
[2019-01-22 05:51] LABS: ANION GAP 11.9 mmol/L (8-16); BLOOD UREA NITROGEN 15 mg/dL (7-26); BUN/CREATININE RATIO 18 (6-25); CALCIUM 9.1 mg/dL (8.4-10.2); CARBON DIOXIDE 22 mmol/L (22-29); CHLORIDE 110 mmol/L (98-107); CHOLESTEROL 139 MD/DL (0-199); CREATININE, SERUM 0.85 mg/dL (0.72-1.25); EST GLOMERULAR FILTRATION RATE > 60 ML/MIN (60-); GLUCOSE 120 mg/dL (74-118); HDL CHOLESTEROL 28 MG/DL (40-60); LDL CHOLESTEROL 78 MG/DL (60-130); POTASSIUM 3.9 mmol/L (3.5-5.1); SODIUM 140 mmol/L (136-145); TRIGLYCERIDES 167 MG/DL (0-149)
[2019-01-22 07:08] LABS: CREATINE KINASE 42 IU/L (30-200)
--- NOTE | 2019-01-22 07:23 | NUR ---
Report given to oncoming JAYDEN Shah, walking round done.
[2019-01-22] MEDS: METOPROLOL TARTRATE 25 MG TAB PO SCH ×2 (10:20→19:06)
--- NOTE | 2019-01-22 10:39 | NUR ---
Paged Dr. Curtis, he returned call I made him aware of patient's heart rate fluctuating from 170-120, I also informed him amiodarone drip completed. Received orders to administer, Amiodarone 400mg, PO once stat. Then give 200mg PO every 8 hours for a total of 9 doses.
[2019-01-22] MEDS ORDERED: AMIODARONE HCL 200 MG TAB PO ONE (11:00)
[2019-01-22] MEDS: RIVAROXABAN 20 MG TABLET PO SCH (17:55)
[2019-01-22] MEDS: AMIODARONE HCL 200 MG TAB PO SCH (19:17)
[2019-01-22] MEDS ORDERED: AMIODARONE HCL 200 MG TAB PO SCH (20:00)
[2019-01-23] VITALS (7 sets, daily range): BP systolic 104–129; BP diastolic 68–86
[2019-01-23] MEDS: AMIODARONE HCL 200 MG TAB PO SCH ×2 (03:05→11:00)
--- NOTE | 2019-01-23 03:11 | Consultation ---
DATE OF CONSULTATION: 01/22/2019 REASON FOR CONSULT: Atrial fibrillation. HISTORY OF PRESENT ILLNESS: This is a 59-year-old gentleman with history of paroxysmal atrial fibrillation. He underwent ablation of atrial fibrillation in July 2017, the patient had been off antiarrhythmics and has been doing very well with no recurrence up until now, he started feeling palpitations, found to have atrial fibrillation with rapid ventricular response, was started on amiodarone. He is also taking Xarelto. The patient otherwise has no complaints. REVIEW OF SYSTEMS: CONSTITUTIONAL: Negative. CARDIOVASCULAR: As per HPI. RESPIRATORY: Negative. GASTROINTESTINAL: Negative. GENITOURINARY: Negative. MUSCULOSKELETAL: Negative. EYES: Negative. ENT: Negative. ALLERGY/IMMUNOLOGY: Negative. PSYCHIATRIC: Negative. PAST MEDICAL HISTORY: Atrial fibrillation. SURGICAL HISTORY: Ablation of atrial fibrillation. FAMILY HISTORY: No premature coronary artery disease. SOCIAL HISTORY: Denies smoking. He admits to alcohol consumption. PHYSICAL EXAMINATION: VITAL SIGNS: Blood pressure 100/60, pulse 110, respirations 20, O2 sats 98%. GENERAL: No acute distress. HEENT: Moist mucous membranes. CARDIOVASCULAR: Irregular. RESPIRATORY: Clear. ABDOMEN: Soft, nontender. MUSCULOSKELETAL: 2+ distal pulses. NEUROLOGICAL: No focal deficit. SKIN: No lesions. PSYCHIATRIC: Normal thought process. EKG, atrial fibrillation, rapid ventricular response. IMPRESSION: Atrial fibrillation with rapid ventricular response, recurrence after ablation in July 2017. RECOMMENDATION: I had a long discussion with the patient. Unfortunately, he had recurrence after one year of the ablation procedure, at this time, I agree with current management. Continue anticoagulation, I agree with amiodarone, managed by Dr. Curtis, also there is a plan for ZHEGN-guided cardioversion, which I think is most reasonable at this time. The patient is to follow up in our clinic in the next two or three weeks to discuss further options. Consider a 2nd ablation procedure after few weeks. Thank you for letting us to participate in Mr. Saab's healthcare. Erick Keating MD JRC/MODL /[id number]
--- NOTE | 2019-01-23 06:54 | NUR ---
Report given to JAYDEN Taylor, walking round done.
[2019-01-23] MEDS: METOPROLOL TARTRATE 25 MG TAB PO SCH ×2 (08:57→17:55)
--- NOTE | 2019-01-23 09:31 | NUR ---
SCHEDULED FOR ZHENG AND CARDIOVERSION TODAY
[2019-01-23] MEDS ORDERED: SODIUM CHLORIDE 0.9% 1000ML 1,000 ML ONE (10:04)
[2019-01-23] MEDS ORDERED: BENZOCAINE 20% SPR 60 ML CAN ONE (10:04)
--- NOTE | 2019-01-23 10:55 | NUR ---
1015 - pt received for ZHENG/cardioversion, placed on MAC monitoring. pt positioned for procedureto left side. IV site patent to left AC 20g , VS monitored by anesthesia , AFIB/RVR rythm rate [id number] 8079 - hurricaine spray (spray 1) to oral cavity by Daily 1025 - hurricaine spray (spray 2) to oral cavity by daily 1030 - all responsible staff present, Timeout performed 1034 - bite block positioned and ZHENG probe passed 1040 - agitated saline injected for bubble study 1041 - ZHENG probe removed , no gross trauma or distress observed 1042 - pt synchronized cardioverted at 120 joules,single shocks to NSR rhythm by Dr. Curtis 1050 - pt taken to [facility] for further recovery
[2019-01-23] MEDS ORDERED: AMIODARONE HCL200 MG PO (17:21)
[2019-01-23] MEDS: RIVAROXABAN 20 MG TABLET PO SCH (17:55)
[2019-01-23] MEDS ORDERED: LIDOCAINE HCL 2% LOCAL INJ 5 ML SDV VIAL INJ ONE (19:19)
[2019-01-23] MEDS ORDERED: METOPROLOL TARTRATE INJ 1 MG/ML VIAL ONE (19:19)
[2019-01-23] MEDS ORDERED: FENTANYL CITRATE/PF 100MCG/2 ML INJ ONE (19:19)
[2019-01-23] MEDS ORDERED: PROPOFOL IV EMULSION 10 MG/ML 20 ML VIAL ONE (19:19)
[2019-01-23] MEDS ORDERED: MIDAZOLAM HCL 2 MG/2 ML VIAL ONE (19:19)
--- NOTE | 2019-01-24 17:31 | Discharge Summary ---
Mr. Saab is a pleasant 59-year-old man, known to me for several years with previous episodes of atrial fibrillation. HOSPITAL COURSE: Presented with rapid atrial fibrillation on the morning of and was loaded with amiodarone. He had been taking his Xarelto. He admitted that he continues to drink alcohol and excessive caffeine. On the morning of , he was taken to the endoscopy suite where ZHENG and cardioversion were performed without difficulty with conversion to sinus rhythm. He is comfortable this afternoon. He is eager to be discharged to home. He is to add amiodarone 400 mg to his regimen. He will take a dose every 8 hours through tomorrow and then begin 400 mg each morning. He will follow up with me in [address] Khan in 2 weeks. DISCHARGE DIAGNOSES: 1. Recurrent atrial fibrillation. 2. Cardiomyopathy. 3. Hypertension. 4. Hyperlipidemia. 5. Mild underlying coronary artery disease. 6. Successful conversion to sinus rhythm. MD ANISH Hogan/ANITA /[id number]
--- NOTE | 2019-01-26 19:02 | Operative Report ---
DATE OF PROCEDURE: 01/23/2019 SURGEON: Shalom Curtis MD PROCEDURE: Transesophageal echocardiogram and cardioversion. INDICATIONS: Atrial fibrillation, recurrent. This is the procedure note only for the interpretation of the transesophageal echocardiogram. Please see separate report. The patient was brought to the endoscopy suite/OR in the fasting and partially sedated state. Cardiac pads were placed in the anterior and posterior chest wall. Anesthesia was provided by the Anesthesia Department. The probe was advanced easily into the esophagus and cardiac structures were imaged in multiple planes briefly. There was no evidence of atrial thrombus. Then, the probe was removed. The patient remains well sedated and he was defibrillated with one shock of 125 joules of biphasic energy with successful cardioversion to sinus rhythm. He has been awakened and intact. There was no complication or blood loss. He has returned to his room in stable condition. FINAL IMPRESSION: 1. Successful transesophageal echocardiogram. 2. No evidence of atrial thrombus. 3. Successful cardioversion to sinus rhythm. MD ANISH Hogan/DUSTYL /[id number] cc: Erick Keating MD
== END 2019-01-23 18:28 | disposition home or self-care (01) | DRG 310 ==
LOC: ER 07:13 → ERHOLD 09:30 → IMCU 13:31
PROVIDERS: ADMIT Internal Medicine Cardiovascular Disease; ATTEND Internal Medicine Cardiovascular Disease
PROC: 5A2204Z Restoration of Cardiac Rhythm, Single (ICD-10-PCS; principal; 2019-01-23)
PROC: B24BZZ4 Ultrasonography of Heart with Aorta, Transesophageal (ICD-10-PCS; 2019-01-23)
DX: I48.0 Paroxysmal atrial fibrillation (principal); R00.2 Palpitations; I10 Essential (primary) hypertension; E78.5 Hyperlipidemia, unspecified; Z79.01 Long term (current) use of anticoagulants; Z82.49 Family history of ischemic heart disease and other diseases of the circulatory system; I25.10 Atherosclerotic heart disease of native coronary artery without angina pectoris
CPT/HCPCS: 36415; 71045; 80048; 80053; 80061; 82550; 82553; 83036; 83735; 84436; 84443; 84479; 84484; 85025; 85610; 85730; 93005; 93306; 93312; 93320; 93325; 96361; 99284; J1160; J2001; J2250; J2270; J3010; J7030

== ENCOUNTER 2024-11-27 22:21 | Emergency (ER) | payer BC ==
[~2024-11-27] VITALS: Ht 188 cm; Wt 109.8 kg
[~2024-11-27 22:21] MED LIST changes: +ELIQUIS5 MG PO; +ENTRESTO 24 MG1 EACH PO; +LASIX40 MG PO; +LOSARTAN POTASS50 MG PO; +METOPROLOL SUC200 MG PO; +METOPROLOL SUCC50 MG PO
[2024-11-27 23:20] VITALS: PULSE 64; RESP 20; TEMP 98; O2SAT 100
== END 2024-11-27 23:47 | disposition home or self-care (01) ==
LOC: ER 23:43
DX: I10 Essential (primary) hypertension (principal); I48.91 Unspecified atrial fibrillation; E78.5 Hyperlipidemia, unspecified; E78.00 Pure hypercholesterolemia, unspecified; M54.9 Dorsalgia, unspecified; G89.29 Other chronic pain
CPT/HCPCS: 99281

== ENCOUNTER 2024-12-07 11:44 | Observation (INO) | payer BC ==
[2024-12-07] VITALS (7 sets, daily range): BP systolic 110–114; BP diastolic 75–76; PULSE 60–62; RESP 17–18; TEMP 97.5–98.6; O2SAT 97–100
[~2024-12-07] VITALS: Ht 188 cm; Wt 108.0 kg
[2024-12-07] MEDS: METOPROLOL TARTRATE INJ 1 MG/ML VIAL IV ONE (12:25)
[2024-12-07] MEDS: DIGOXIN INJ 0.25 MG/ML 2 ML AMP IV ONE (12:26)
[2024-12-07] MEDS: SODIUM CHLORIDE 0.9% 500ML 500 ML IV ONE (12:27)
[2024-12-07 12:38] LABS: BASOPHILS % 0.5 % (0.0-1.0); EOSINOPHILS % 3.0 % (0.0-6.0); LYMPHOCYTES % 21.8 % (18.0-39.1); MONOCYTES % 18.3 % (4.4-11.3); NEUTROPHILS % 55.9 % (38.7-80.0); RED CELL DISTRIBUTION WIDTH 12.9 % (11.7-14.4)
[2024-12-07 12:48] LABS: INR 1.03
[2024-12-07 12:52] LABS: EST GLOMERULAR FILTRATION RATE 104 ML/MIN (>=60)
[2024-12-07] MEDS ORDERED: ETOMIDATE 40 MG/ 20ML VIAL IV ONE (13:35)
[2024-12-07] MEDS ORDERED: FENTANYL CITRATE/PF 100MCG/2 ML INJ ONE (13:37)
[2024-12-07] MEDS: FENTANYL CITRATE/PF 100MCG/2 ML INJ IV ONE (13:42)
[2024-12-07] MEDS: ETOMIDATE 2 MG/ML 10 ML INJ IV STA (13:43)
[2024-12-07] MEDS ORDERED: SODIUM CHLORIDE 0.9% 1000ML 1,000 ML ONE (13:50)
[2024-12-07] MEDS ORDERED: ONDANSETRON HCL INJ 2MG/ML 2ML 2 MG/ML VIAL IV PRN (14:45)
[2024-12-07] MEDS ORDERED: HYDROCODONE/APAP 5MG-325MG TAB PO PRN (16:00)
[2024-12-07] MEDS ORDERED: solatol PO (16:15)
[2024-12-07] MEDS ORDERED: ULTRAM 50MG50 MG PO (16:18)
[2024-12-07] MEDS: SOTALOL HCL 80 MG TAB PO SCH (17:17)
[2024-12-07] MEDS: APIXABAN 5 MG TABLET PO SCH (17:17)
[2024-12-08] VITALS: BP 139/89; PULSE 52; RESP 18; TEMP 97.9; O2SAT 99
[2024-12-08 04:00] VITALS: BP 127/80; PULSE 54; RESP 18; TEMP 97.6; O2SAT 98
[2024-12-08 07:16] LABS: BASOPHILS % 0.3 % (0.0-1.0); EOSINOPHILS % 3.4 % (0.0-6.0); LYMPHOCYTES % 27.2 % (18.0-39.1); MONOCYTES % 13.5 % (4.4-11.3); NEUTROPHILS % 55.3 % (38.7-80.0); RED CELL DISTRIBUTION WIDTH 13.1 % (11.7-14.4)
[2024-12-08 07:41] LABS: EST GLOMERULAR FILTRATION RATE 103.0 ML/MIN (>=60)
[2024-12-08 09:40] VITALS: BP 125/81; PULSE 58; RESP 18; TEMP 98; O2SAT 97
[2024-12-08 12:00] VITALS: BP 140/96; PULSE 53; RESP 18; TEMP 98; O2SAT 100
== END 2024-12-08 12:34 | disposition home or self-care (01) ==
LOC: ER 12:04 → ERHOLD 14:39 → MED/SURG3 15:59
PROVIDERS: ADMIT Internal Medicine; ATTEND Internal Medicine
DX: I48.91 Unspecified atrial fibrillation (principal); Z79.01 Long term (current) use of anticoagulants; I10 Essential (primary) hypertension; E78.5 Hyperlipidemia, unspecified; E66.9 Obesity, unspecified; Z68.30 Body mass index [BMI] 30.0-30.9, adult; G89.29 Other chronic pain; M54.9 Dorsalgia, unspecified; Z79.899 Other long term (current) drug therapy
CPT/HCPCS: 36415 ×2; 71045; 80053 ×2; 82550 ×2; 83735; 83880; 84484 ×2; 85025 ×2; 85610; 85730; 92960; 93005; 99284; G0378 ×2; J1160; J3010; J7030; J7040